=== PATIENT | male | born 1990 | race Caucasian/White ===

== ENCOUNTER 2017-10-24 14:16 | Emergency (ER) | payer MEDICAID ==
[~2017-10-24] VITALS: Ht 180.3 cm; Wt 146.5 kg
[~2017-10-24 14:16] MED LIST: CIPRO500 MG PO; EFFEXOR XR150 MG PO; FLAGYL500 MG PO; LISINOPRIL-HCT1 EAC1 PO; ZOFRAN ODT4 MG PO
[2017-10-24 15:20] VITALS: BP 113/53
== END 2017-10-24 15:24 | disposition home or self-care (01) ==
LOC: M.ERS 14:16
DX: M25.561 Pain in right knee (principal); I10 Essential (primary) hypertension; F32.9 Major depressive disorder, single episode, unspecified; F41.9 Anxiety disorder, unspecified; M54.30 Sciatica, unspecified side; Z88.7 Allergy status to serum and vaccine; X58.XXXA Exposure to other specified factors, initial encounter; Y93.89 Activity, other specified; Y92.89 Other specified places as the place of occurrence of the external cause; Y99.8 Other external cause status

== ENCOUNTER 2018-07-03 22:16 | Emergency (ER) | payer MEDICAID ==
[~2018-07-03] VITALS: Ht 177.8 cm; Wt 158.8 kg
[2018-07-03 22:57] LABS: ABSOLUTE BASOPHILS 0.1 thou/uL (0.0-0.2); ABSOLUTE EOSINOPHILS 0.2 thou/uL (0.0-0.7); ABSOLUTE LYMPHOCYTES 1.6 thou/uL (0.8-5.3); ABSOLUTE MONOCYTES 0.6 thou/uL (0.0-1.2); ABSOLUTE NEUTROPHILS 8.8 thou/uL (1.6-8.1); BASOPHILS 0.6 %; EOSINOPHILS 2.2 %; HEMATOCRIT 42.2 % (42.0-52.0); HEMOGLOBIN 14.2 gm/dL (14.0-18.0); LYMPHOCYTES 13.7 %; MCH 30.9 pg (26.0-34.0); MCHC 33.7 g/dL (28.0-37.0); MCV 91.6 fL (80.0-100.0); MONOCYTES 5.7 %; NUCLEATED RBCS 0 /100WBC; PLATELET COUNT* 418 thou/uL (150-400); POLYS 77.8 %; RDW-CV 13.3 % (10.5-14.5); WBC 11.3 thou/uL (4.0-11.0)
[2018-07-03 23:06] LABS: CREATININE 1.1 mg/dL (0.6-1.3); POTASSIUM 3.3 mmol/L (3.5-5.1)
[2018-07-03] MEDS ORDERED: ZOFRAN ODT4 MG PO (23:34)
[2018-07-03 23:49] VITALS: BP 123/69
== END 2018-07-03 23:50 | disposition home or self-care (01) ==
LOC: M.ERS 22:16
PROVIDERS: Emergency Medicine
DX: R11.2 Nausea with vomiting, unspecified (principal); R19.7 Diarrhea, unspecified; I10 Essential (primary) hypertension; M54.30 Sciatica, unspecified side; F32.9 Major depressive disorder, single episode, unspecified; F41.9 Anxiety disorder, unspecified; Z88.7 Allergy status to serum and vaccine

== ENCOUNTER 2018-10-19 22:54 | Emergency (ER) | payer MEDICARE, OTHER, MEDICAID ==
[~2018-10-19] VITALS: Ht 177.8 cm; Wt 158.8 kg
[2018-10-19 23:57] LABS: URINE BILIRUBIN NEGATIVE (Negative); URINE BLOOD TRACE (Negative); URINE CLARITY CLEAR; URINE COLOR YELLOW; URINE GLUCOSE-RANDOM NEGATIVE (Negative); URINE KETONES NEGATIVE (Negative); URINE LEUKOCYTES-REFLEX NEGATIVE (Negative); URINE NITRITE-REFLEX NEGATIVE (Negative); URINE PROTEIN NEGATIVE (Negative); URINE SPECIFIC GRAVITY >= 1.030 (1.005-1.030); URINE UROBILINOGEN 0.2 E.U./dl (0.2-1.0)
[2018-10-20] MEDS ORDERED: FLEXERIL PO (00:26)
[2018-10-20] MEDS ORDERED: NORCO 5-325 TA1 EACH PO (00:26)
[2018-10-20 00:35] VITALS: BP 135/89
== END 2018-10-20 00:35 | disposition home or self-care (01) ==
LOC: M.ERS 22:54
PROVIDERS: Nurse Practitioner Family
DX: M54.6 Pain in thoracic spine (principal); M25.511 Pain in right shoulder; I10 Essential (primary) hypertension; F32.9 Major depressive disorder, single episode, unspecified; F41.9 Anxiety disorder, unspecified; Z88.7 Allergy status to serum and vaccine

== ENCOUNTER 2020-06-27 17:41 | Emergency (ER) | payer OTHER, MEDICAID ==
[~2020-06-27] VITALS: Ht 180.3 cm; Wt 161.0 kg
[~2020-06-27 17:41] MED LIST changes: +FLEXERIL PO; +NORCO 5-325 TA1 EACH PO
[2020-06-27] MEDS ORDERED: LISINOPRIL-HCT1 EACH PO (18:23)
[2020-06-27 19:04] VITALS: BP 143/75
== END 2020-06-27 19:05 | disposition home or self-care (01) ==
LOC: M.ERS 17:41
DX: I10 Essential (primary) hypertension (principal); Z76.0 Encounter for issue of repeat prescription; Z88.1 Allergy status to other antibiotic agents; Z88.7 Allergy status to serum and vaccine